=== PATIENT | male | born 1965 | race Caucasian/White ===

== ENCOUNTER → 2021-01-17 11:13 | Emergency (ER) | payer MEDICARE ==
[~2021-01-17] VITALS: Ht 170.2 cm; Wt 90.7 kg
[2021-01-17 11:13] VITALS: BP_SYST 138
[~2021-01-17 11:13] MED LIST: NAPR-690 PO
[2021-01-17 13:52] VITALS: BP_SYST 131
== END | disposition home or self-care (01) ==
LOC: SED 11:13
DX: S43.402A Unspecified sprain of left shoulder joint, initial encounter (principal); S83.91XA Sprain of unspecified site of right knee, initial encounter; W18.39XA Other fall on same level, initial encounter; Y93.89 Activity, other specified; Y92.89 Other specified places as the place of occurrence of the external cause; Y99.8 Other external cause status
CPT/HCPCS: 73030; 73060-TC; 73564; 99284